=== PATIENT | male | born 1940 | race Caucasian/White ===

== ENCOUNTER 2022-03-11 10:58 | Outpatient (CLI) | payer MEDICARE, BC, SELFPAY ==
[2022-03-11 11:22] LABS: Hematocrit 49.5 % (37.0-53.0); Hemoglobin* 16.2 gm/dL (13.5-17.5); Mean Corpuscular HGB Conc 33 gm/dL (32-36); Mean Corpuscular Hemoglobin 28 pg (26-34); Mean Corpuscular Volume 86 fL (80-100); Platelet Count* 195 K/uL (140-440); Red Blood Count 5.75 m/uL (4.30-5.90); White Blood Count* 6.64 K/uL (4.50-11.00)
[2022-03-11 11:32] LABS: Slide Review Reflex No
[2022-03-11 12:38] LABS: Albumin* 4.2 g/dL (3.3-5.0); Chloride* 102 mmol/L (96-114)
[2022-03-11 12:39] LABS: Potassium* 3.2 mmol/L (3.6-5.1); Sodium* 143 mmol/L (135-149)
[2022-03-11 12:41] LABS: Bilirubin Total* 2.7 mg/dL (0.1-1.5); Carbon Dioxide* 32 mmol/L (20-32); Creatinine* 1.4 mg/dL (0.5-1.5); Estimated Glomerular Filt Rate 50 ml/min
[2022-03-11 12:42] LABS: Alanine Aminotransferase* 19 U/L (4-50); Alkaline Phosphatase* 150 U/L (40-150); Aspartate Amino Transferase* 29 U/L (12-35); Blood Urea Nitrogen* 17 mg/dL (7-30); Calcium* 9.7 mg/dL (8.4-10.6); Glucose* 96 mg/dL (60-115); Total Protein* 8.3 g/dL (6.0-8.3)
== END 2022-03-11 10:59 | disposition home or self-care (01) ==
LOC: NFLDREF 10:58
PROVIDERS: PCP Internal Medicine; Visit Provider Internal Medicine
DX: I10 Essential (primary) hypertension (principal); R53.83 Other fatigue
CPT/HCPCS: 80053; 85027

== ENCOUNTER 2023-04-14 17:50 | Emergency (ER) | payer MEDICARE, BC, SELFPAY ==
[2023-04-14] VITALS (9 sets, daily range): BP systolic 151–182; BP diastolic 126–146; PULSE 62–94; RESP 16; TEMP 35.9; O2SAT 88–98; BMI 27.1
--- NOTE | 2023-04-14 18:17 | CRLHL7_ITS ---
For Patients: As a result of the Century Cures Act, medical imaging exams and procedure reports are released immediately into your electronic medical record. You may view this report before your referring provider. If you have questions, please contact your health care provider. INDICATION: Stroke. Injury. COMPARISON: June 27, 2018 TECHNIQUE: CT examination of the head was performed as axial sections without intravenous contrast. Images were obtained from the vertex of the skull through the skull base. Please note that all CT scans at this facility use dose modulation, iterative reconstruction, and/or weight-based dosing when appropriate to reduce radiation dose to as low as reasonably achievable. FINDINGS: The brain shows no sign of mass lesion, mass effect, hemorrhage, or edema. There are involutional changes. There is moderate to severe cortical atrophy and there is moderate to severe white matter disease. There is no hydrocephalus. There is encephalomalacia both inferior cerebellar hemispheres. This appears to be chronic. The visualized portions of the orbits are normal in appearance. No acute osseous abnormalities. There has been a right occipital craniectomy Subcutaneous swelling noted in the left parieto-occipital region. IMPRESSION: 1. No acute intracranial posttraumatic findings. 2. 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 3. Postoperative changes involving the calvarium. No acute calvarial fracture. 4. Subcutaneous hematoma in the left parieto-occipital region Please note that all CT scans at this facility use dose modulation, iterative reconstruction, and/or weight-based dosing when appropriate to reduce radiation dose to as low as reasonably achievable. Dictated by Flex Thayer MD @ 04/14/2023 7:01:18 PM (Electronically Signed)
--- NOTE | 2023-04-14 18:17 | CRLHL7_ITS ---
For Patients: As a result of the Century Cures Act, medical imaging exams and procedure reports are released immediately into your electronic medical record. You may view this report before your referring provider. If you have questions, please contact your health care provider. INDICATION: Injury COMPARISON: None TECHNIQUE: CT examination of the cervical spine is performed without contrast using spiral technique. Thin axial, sagittal and coronal reconstructions were made. Please note that all CT scans at this facility use dose modulation, iterative reconstruction, and/or weight-based dosing when appropriate to reduce radiation dose to as low as reasonably achievable. FINDINGS: : There is straightening which is probably due to muscle spasm, positioning or immobilization device. There are moderate degenerative changes diffusely. There is no visible acute fracture, dislocation or destructive process. IMPRESSION: Straightening. Degenerative changes. No visible acute fracture, dislocation or destructive process. Please note that all CT scans at this facility use dose modulation, iterative reconstruction, and/or weight-based dosing when appropriate to reduce radiation dose to as low as reasonably achievable. Dictated by Flex Thayer MD @ 04/14/2023 7:03:58 PM (Electronically Signed)
--- NOTE | 2023-04-14 22:22 | ED.GENADULT ---
HPI - General Adult General Date Seen: 04/14/23 Chief complaint: Head Injury/Pain Stated complaint: Fall, cracked head open Time Seen by Provider: 04/14/23 18:36 Source: family Mode of arrival: ambulatory Limitations: no limitations History of Present Illness HPI narrative: Patient is an 83-year-old here with his . He had a fall at home which his did not witness but heard and went immediately into him. He did not pass out or lose consciousness, but he she says that he did crack is head pretty hard on the ground. There was bleeding from the wound, he does not take any blood thinners. Complains of pain everywhere but she says that that is his baseline. He does not have any focal complaints. He was ambulatory at home, his said he did not seem to have any pain walking, did not complain of any pain in his back or hips beyond his usual. He is very confused but has dementia and she says he is at his baseline. She does not have any concerns aside from his head injury. Related Data Home Medications Medication Instructions Recorded Confirmed omeprazole 20 mg capsule,delayed 20 mg PO DAILY 03/11/22 03/11/22 release Previous Rx's Medication Instructions Recorded sertraline 50 mg tablet 50 mg PO QDAY #30 tabs 02/23/22 metoprolol succinate 50 mg 50 mg PO QDAY Hypertension #90 tabs 03/11/22 tablet,extended release 24 hr hydrochlorothiazide 25 mg tablet 25 mg PO DAILY #90 tabs 04/26/22 losartan 100 mg tablet 100 mg PO QDAY #90 tabs 04/26/22 Allergies Allergy/AdvReac Type Severity Reaction Status Date / Time No Known Allergies Allergy Verified 04/14/23 18:15 Review of Systems Status of ROS: Reports: unobtainable due to medical condition [facility] Medical History Fatigue ?R53.83 - Other fatigue (ICD-10) Skin lesions ?L98.9 - Disorder of the skin and subcutaneous tissue, unspecified (ICD-10) 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 In general, an alert, nontoxic elderly male sitting in a wheelchair. GCS 15 Head: Normocephalic. On the right posterior lower scalp there is a 2 cm laceration initially not well visualized due to hematoma and matted blood. Eyes: Pupils are equal reactive. Extraocular movements are full. Conjunctivae are normal. ENT: Mucous membranes are moist. No facial trauma. Neck: Supple without lymphadenopathy. Nontender to palpation. Heart: Regular rate and rhythm. Lungs: Clear bilaterally. No increased work of breathing, crackles or wheezes. Abdomen: Soft and nontender. No organomegaly. Back nontender. Extremities: Well perfused. No edema. No calf tenderness. Pulses intact. Neurologic: Patient is pleasantly confused, cooperative. Moves all extremities. Affect: Normal. Skin: Warm and dry. Well perfused. Const: Vital Signs, click to edit/add: Vital Signs - 24 hr 04/14/23 18:12 04/14/23 18:44 04/14/23 18:45 Temperature 96.7 F L Pulse Rate 71 81 Pulse Rate [Right Pulse Oximeter] 62 Respiratory Rate 16 Blood Pressure 151/129 H Blood Pressure [Le ft Upper Arm] 176/127 H Pulse Oximetry 97 91 98 Oxygen Delivery Me thod Room Air 04/14/23 18:52 04/14/23 19:00 04/14/23 19:03 Temperature Pulse Rate 77 83 84 Pulse Rate [Right Pulse Oximeter] Respiratory Rate Blood Pressure 169/128 H 182/126 H Blood Pressure [Le ft Upper Arm] Pulse Oximetry 92 92 Oxygen Delivery Me thod 04/14/23 19:13 04/14/23 19:15 04/14/23 19:22 Temperature Pulse Rate 87 87 94 Pulse Rate [Right Pulse Oximeter] Respiratory Rate Blood Pressure 171/137 H 173/146 H Blood Pressure [Le ft Upper Arm] Pulse Oximetry 89 88 Oxygen Delivery Me thod Documenting provider has reviewed patient's vital signs: yes Course Course ED Course: After brief initial exam patient over to CT scan. He had a CT of the head and cervical spine. I reviewed his head CT and did not see anything suggestive of intracranial hemorrhage. Final radiology read is as follows:1. No acute intracranial posttraumatic findings. 2. 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 3. Postoperative changes involving the calvarium. No acute calvarial fracture. 4. Subcutaneous hematoma in the left parieto-occipital region CT of the cervical spine is read as negative by Radiology. Following imaging, attention was turned to his scalp laceration. He did have a hematoma in that area. This area was cleaned. Procedure note: The wound was anesthetized using lidocaine with epinephrine and bleeding was controlled. The wound was explored without evidence of foreign body. It was cleaned using normal saline. I closed it using vania. A total of 5 were placed. He tolerated this well and there was no active bleeding after staple placement. Discussed with his that they could go to clinic for staple removal, alternatively, I sent a staple removal tool home with her and I showed her how to remove the vania herself in case it is difficult for her to get to clinic with him. Reviewed reasons to return including signs of infection or serious head injury such as vomiting, confusion, severe headache. Vital Signs Vital signs: Initial Vital Signs Temperature 96.7 F L 04/14/23 18:12 Temperature Source Temporal Artery Scan 04/14/23 18:12 Pulse Rate 62 04/14/23 18:12 Respiratory Rate 16 04/14/23 18:12 Blood Pressure 176/127 H 04/14/23 18:12 Blood Pressure Mean 143 H 04/14/23 18:12 Blood Pressure Position Sitting 04/14/23 18:12 Pulse Oximetry 97 04/14/23 18:12 Oxygen Delivery Method Room Air 04/14/23 18:12 Vital Signs Temperature 96.7 F L 04/14/23 18:12 Pulse Rate 62 04/14/23 18:12 Respiratory Rate 16 04/14/23 18:12 Blood Pressure 176/127 H 04/14/23 18:12 Pulse Oximetry 97 04/14/23 18:12 Oxygen Delivery Method Room Air 04/14/23 18:12 Temperature 96.7 F L 04/14/23 18:12 Pulse Rate 94 04/14/23 19:22 Respiratory Rate 16 04/14/23 18:12 Blood Pressure 173/146 H 04/14/23 19:22 Pulse Oximetry 88 04/14/23 19:22 Oxygen Delivery Method Room Air 04/14/23 18:12 Discharge Plan Discharge Clinical Impression: Closed head injury, Laceration of scalp Patient Disposition: Home w/ Parent or Adult Condition: Improved Instructions: Laceration (ED), Head Injury (ED) Additional Instructions: Vania can be removed in about 10 days. Remember 2 prongs under the staple, 1 prong above. Any signs of infection or severe head injury such as vomiting, confusion, severe headache, return to the ER. Prescriptions: No Action omeprazole 20 mg capsule,delayed release(DR/EC) 20 mg PO DAILY metoprolol succinate 50 mg tablet extended release 24 hr 50 mg PO QDAY Qty: 90 3RF sertraline 50 mg tablet 50 mg PO QDAY Qty: 30 0RF hydrochlorothiazide 25 mg tablet 25 mg PO DAILY Qty: 90 1RF losartan 100 mg tablet 100 mg PO QDAY Qty: 90 3RF Follow Up/Referrals: Dorys Urbina DO [Primary Care Provider] - Stand Alone Forms: MyHealth Info Instructions
== END 2023-04-14 20:12 | disposition home or self-care (01) ==
PROVIDERS: Emergency Provider Emergency Medicine; PCP Family Medicine
DX: S01.01XA Laceration without foreign body of scalp, initial encounter (principal); W18.30XA Fall on same level, unspecified, initial encounter
CPT/HCPCS: 12001; 70450; 72125; 99284; 99291